=== PATIENT | female | born 1990 | race Caucasian/White ===

== ENCOUNTER 2016-06-29 11:19 | Emergency (ER) | payer MEDICAID ==
[~2016-06-29] VITALS: Ht 170.2 cm; Wt 63.6 kg
[~2016-06-29 11:19] MED LIST: BIRTHCONTROL; LORTAB 5/500 501 TAB; LORTAB 5/500 501 TAB PO; NO HOME MEDICATIONS; NORCO 325 MG-51 TAB PO; PHENERGAN 25 TA25 MG PO; TRINESSA
[2016-06-29 11:21] VITALS: BP 124/72; TEMP 98.5
[2016-06-29] MEDS ORDERED: SPRINTEC 35 MCG1 TAB PO (11:27)
[2016-06-29] MEDS ORDERED: NORCO 325 MG-51 TAB PO (12:55)
[2016-06-29 13:10] VITALS: PULSE 87
== END 2016-06-29 13:10 | disposition home or self-care (01) ==
LOC: COL.ER 11:19
DX: K62.89 Other specified diseases of anus and rectum (principal); K62.5 Hemorrhage of anus and rectum
CPT/HCPCS: J1885

== ENCOUNTER → 2016-06-30 | Outpatient (CLI) | payer MEDICAID ==
[~2016-06-30] MED LIST changes: +SPRINTEC 35 MCG1 TAB PO
== END ==
LOC: COL.RAD 16:09
DX: K62.89 Other specified diseases of anus and rectum (principal)
CPT/HCPCS: Q9967

== ENCOUNTER → 2020-12-14 | Outpatient (CLI) | payer MEDICAID ==
[2020-12-14 22:41] LABS: COLLECTION METHOD CLEAN CATCH
[2020-12-14 22:56] LABS: MUCOUS Present /lpf; PH 5 (5-8); SQUAMOUS EPITHELIAL None Seen /hpf; URINE APPEARANCE Turbid; URINE BACTERIA Rare /hpf; URINE BILIRUBIN Negative (NEGATIVE); URINE BLOOD 3+ (NEGATIVE); URINE COLOR Red; URINE GLUCOSE Negative (NEGATIVE); URINE KETONE Negative (NEGATIVE); URINE LEUKOCYTE ESTERASE Trace (NEGATIVE); URINE NITRATE Positive (NEGATIVE); URINE PROTEIN(semi-quant) 2+ (NEGATIVE); URINE RBC >50 /hpf; URINE UROBILINOGEN >=4.0 mg/dL (NEGATIVE); URINE WBC >50 /hpf
== END ==
LOC: ZCOL.LAB 22:32
PROVIDERS: Nurse Practitioner
DX: R30.0 Dysuria (principal)